=== PATIENT | female | born 1930 | race Caucasian/White ===

== ENCOUNTER 2018-03-21 19:13 | Observation (INO) | payer MEDICARE, OTHER ==
[2018-03-21 21:48] LABS: MODE ROOM AIR; MetHgb Venous 0.4 %; Sample Type Blood venous; Site VENOUS LINE; Venous COHb 0 %; Venous Fraction OxyHgb 63.3 %; Venous Oxygen Sat 63.6 mmHG (55.0-75.0); Venous Total Hemglobin 10.1 g/dl
[2018-03-21 21:56] LABS: WHITE BLOOD COUNT 5.1 10^3/ul (4.8-10.8)
[2018-03-21 21:57] LABS: HEMATOCRIT 28.1 % (37.0-47.0); HEMOGLOBIN 9.7 g/dl (12.0-16.0); MEAN CORPUSCULAR HEMOGLOBIN 34.9 pg (29.0-33.0); MEAN CORPUSCULAR HGB CONC 34.5 g/dl (32.0-37.0); MEAN CORPUSCULAR VOLUME 101.1 fl (82.0-101.0); MEAN PLATELET VOLUME 9.9 fl (7.4-10.4); PLATELET COUNT 256 10^3/UL (140-415); RED BLOOD COUNT 2.78 10^6/ul (4.20-5.40); RED CELL DISTRIBUTION WIDTH 14.8 % (11.5-14.5)
[2018-03-21 21:58] LABS: POSITIVE DIFF @See below
[2018-03-21 21:59] LABS: ADD MAN DIFF? YES
[2018-03-21] MEDS: SOD CHLORIDE 0.9% 520 ML IV (22:03)
[2018-03-21 22:14] LABS: ADD UMIC YES; UR ASCORBIC ACID 20 mg/dL (NEGATIVE); UR BACTERIA MANY /HPF (NONE SEEN); UR BILIRUBIN (Dip) NEGATIVE (NEGATIVE); UR BLOOD (Dip) NEGATIVE (NEGATIVE); UR CLARITY SLIGHTLY CLOUDY (CLEAR); UR COLOR YELLOW (YELLOW); UR GLUCOSE (Dip) NEGATIVE (NEGATIVE); UR KETONES (Dip) NEGATIVE (NEGATIVE); UR LEUKOCYTE ESTERASE (Dip) 2+ Leu/ul (NEGATIVE); UR MUCUS FEW /HPF (NONE SEEN); UR NITRITE (Dip) NEGATIVE (NEGATIVE); UR RBC 2 /HPF (0-5); UR SPECIFIC GRAVITY (Dip) 1.015 (1.003-1.030); UR TOTAL PROTEIN (Dip) NEGATIVE (NEGATIVE); UR UROBILINOGEN (Dip) 1+ mg/dL (NEGATIVE); UR WBC 7 /HPF (0-5)
[2018-03-21 22:15] LABS: ANION GAP 10 (5-13); BLOOD UREA NITROGEN 25 mg/dl (7-20); CALCIUM 9.7 mg/dl (8.4-10.2); CARBON DIOXIDE 22 mmol/L (21-31); CHLORIDE 100 mmol/L (97-110); CREATININE 0.91 mg/dl (0.44-1.00); GLUCOSE 101 mg/dl (70-220); MAGNESIUM 1.7 mg/dl (1.7-2.5); POTASSIUM 4.9 mmol/L (3.5-5.1); SODIUM 132 mmol/L (135-144)
[2018-03-21 22:27] LABS: ANISOCYTOSIS 2+ (0-0); BASOPHIL #M 0.1 10^3/ul (0.0-0.0); BASOPHILS % (M) 3 % (0-2); EOSINOPHILS % (M) 8 % (0-7); GIANT THROMBO% (M) 3 % (0-0); LYMPHOCYTES #M 0.8 10^3/ul (0.8-2.9); LYMPHOCYTES % (M) 17 % (15-51); MONOCYTE #M 0.2 10^3/ul (0.3-0.9); MONOCYTES % (M) 5 % (0-11); PLATELET ESTIMATE NORMAL; POLYCHROMASIA 3+ (0-0); SEGMENTED NEUTROPHILS (M) % 67 % (39-77); SMUDGE%M 36 % (0-0)
[2018-03-21] MEDS: HYDROCODONE/APAP (5/325) TAB PO (23:28)
[2018-03-21] MEDS: ONDANSETRON (ODT) 4 MG TAB ODT (23:28)
[2018-03-22] MEDS: CEFTRIAXONE 1 GM/50 ML (PMX) 50 ML IVPB (01:29)
[2018-03-22] MEDS ORDERED: MAGNESIUM HYDROXIDE 30ML CUP PO (03:30)
[2018-03-22] MEDS ORDERED: NACL 0.9% 3 ML SYG IV (03:30)
[2018-03-22] MEDS ORDERED: HYDROCODONE/APAP (5/325) TAB PO (03:30)
[2018-03-22] MEDS ORDERED: ONDANSETRON 4 MG INJ IV (03:30)
[2018-03-22] MEDS ORDERED: ALBUTEROL/IPRATROPIUM (NEB) 3 ML AMP HHN (03:30)
[2018-03-22] MEDS ORDERED: ACETAMINOPHEN 325 MG TAB PO (03:30)
[2018-03-22] MEDS: HYDROCODONE/APAP (5/325) TAB PO (04:52)
[2018-03-22] MEDS: PANTOPRAZOLE (EC) 40 MG TAB PO (05:28)
[2018-03-22 06:09] LABS: WHITE BLOOD COUNT 4.4 10^3/ul (4.8-10.8)
[2018-03-22 06:09] LABS: HEMATOCRIT 29.1 % (37.0-47.0); HEMOGLOBIN 9.8 g/dl (12.0-16.0); MEAN CORPUSCULAR HGB CONC 33.7 g/dl (32.0-37.0); MEAN PLATELET VOLUME 10.4 fl (7.4-10.4); PLATELET COUNT 253 10^3/UL (140-415); RED BLOOD COUNT 2.88 10^6/ul (4.20-5.40); RED CELL DISTRIBUTION WIDTH 14.8 % (11.5-14.5)
[2018-03-22 06:30] LABS: ADD MAN DIFF? YES; POSITIVE DIFF @See below
[2018-03-22 07:14] LABS: ALANINE AMINOTRANSFERASE 19 IU/L (13-69); ALBUMIN 3.5 g/dl (3.3-4.9); ALBUMIN/GLOBULIN RATIO 1.45; ALKALINE PHOSPHATASE 57 IU/L (42-121); ANION GAP 9 (5-13); ASPARTATE AMINO TRANSFERASE 20 IU/L (15-46); BILIRUBIN,INDIRECT 0.2 mg/dl (0-1.1); BILIRUBIN,TOTAL 0.2 mg/dl (0.2-1.3); BLOOD UREA NITROGEN 17 mg/dl (7-20); CALCIUM 9.6 mg/dl (8.4-10.2); CARBON DIOXIDE 26 mmol/L (21-31); CHLORIDE 100 mmol/L (97-110); GLUCOSE 99 mg/dl (70-220); POTASSIUM 4.7 mmol/L (3.5-5.1); SODIUM 135 mmol/L (135-144); TOTAL PROTEIN 5.9 g/dl (6.1-8.1)
[2018-03-22 07:15] LABS: ANISOCYTOSIS 1+ (0-0); BAND NEUTROPHILS #M 0.1 10^3/ul (0.0-0.6); BAND NEUTROPHILS % (M) 3 % (0-4); BASOPHILS % (M) 2 % (0-2); EOSINOPHILS % (M) 11 % (0-7); LYMPHOCYTES #M 1.1 10^3/ul (0.8-2.9); LYMPHOCYTES % (M) 27 % (15-51); MONOCYTE #M 0.1 10^3/ul (0.3-0.9); MONOCYTES % (M) 3 % (0-11); PLATELET ESTIMATE NORMAL; REACTIVE LYMPHOCYTES% (M) 1 % (0-0); SEG NEUT #M 2.3 10^3/ul (1.6-7.5); SEGMENTED NEUTROPHILS (M) % 53 % (39-77); SMUDGE%M 2 % (0-0)
[2018-03-22] MEDS ORDERED: NON-FORMULARY/PATIENT OWN MED (Omeprazole* 20 MG) PO (09:00)
[2018-03-22] MEDS: FLUOXETINE 20 MG CAP PO (09:48)
[2018-03-22] MEDS: ESCITALOPRAM 10 MG TAB PO (09:48)
[2018-03-22] MEDS: LOSARTAN 50 MG TAB PO (09:48)
[2018-03-22] MEDS: ATENOLOL 50 MG TAB PO (09:48)
[2018-03-22] MEDS: FERROUS SULFATE (EC) 325 MG TAB PO (09:49)
[2018-03-22] MEDS: FUROSEMIDE 20 MG TAB PO (09:49)
[2018-03-22 13:05] LABS: IRON 82 ug/dl (35-150)
[2018-03-22 13:14] LABS: % IRON SATURATION 25 % SAT (22-52); TOTAL IRON BINDING CAPACITY 324 ug/dl (241-421)
[2018-03-22] MEDS: FOSFOMYCIN 3 GM PACKET PO (13:23)
[2018-03-22 13:49] LABS: INR 1.29; PROTIME 16.3 Sec (11.9-14.9); PT RATIO 1.3
[2018-03-22 13:57] LABS: PARTIAL THROMBOPLASTIN TIME 26.6 Sec (23.0-35.0)
[2018-03-22] MEDS: SOD FERRIC GLUC COMPLX 125 MG in SOD CHLORIDE 0.9% 100 ML IVPB (13:58)
[2018-03-23] MEDS: PANTOPRAZOLE (EC) 40 MG TAB PO (05:41)
[2018-03-23 07:06] LABS: HEMATOCRIT 27.9 % (37.0-47.0); HEMOGLOBIN 9.5 g/dl (12.0-16.0); MEAN CORPUSCULAR HEMOGLOBIN 34.5 pg (29.0-33.0); MEAN CORPUSCULAR HGB CONC 34.1 g/dl (32.0-37.0); MEAN CORPUSCULAR VOLUME 101.5 fl (82.0-101.0); MEAN PLATELET VOLUME 10.2 fl (7.4-10.4); PLATELET COUNT 231 10^3/UL (140-415); RED BLOOD COUNT 2.75 10^6/ul (4.20-5.40); RED CELL DISTRIBUTION WIDTH 14.8 % (11.5-14.5)
[2018-03-23 07:06] LABS: WHITE BLOOD COUNT 3.3 10^3/ul (4.8-10.8)
[2018-03-23 07:11] LABS: ADD MAN DIFF? YES; POSITIVE DIFF @See below
[2018-03-23 07:39] LABS: ANION GAP 8 (5-13); BLOOD UREA NITROGEN 15 mg/dl (7-20); CALCIUM 9.3 mg/dl (8.4-10.2); CARBON DIOXIDE 24 mmol/L (21-31); CHLORIDE 100 mmol/L (97-110); CREATININE 0.51 mg/dl (0.44-1.00); GLUCOSE 89 mg/dl (70-220); PHOSPHORUS 3.1 mg/dl (2.5-4.9); SODIUM 132 mmol/L (135-144)
[2018-03-23 07:49] LABS: ANISOCYTOSIS 1+ (0-0); BASOPHILS % (M) 3 % (0-2); EOSINOPHILS % (M) 6 % (0-7); LYMPHOCYTES % (M) 32 % (15-51); MONOCYTE #M 0.1 10^3/ul (0.3-0.9); MONOCYTES % (M) 5 % (0-11); PLATELET ESTIMATE NORMAL; REACTIVE LYMPHOCYTES% (M) 2 % (0-0); SEGMENTED NEUTROPHILS (M) % 52 % (39-77); SMUDGE%M 7 % (0-0)
[2018-03-23 07:58] LABS: POTASSIUM 4.1 mmol/L (3.5-5.1)
[2018-03-23] MEDS: FERROUS SULFATE (EC) 325 MG TAB PO (08:37)
[2018-03-23] MEDS: LOSARTAN 50 MG TAB PO (08:38)
[2018-03-23] MEDS: FUROSEMIDE 20 MG TAB PO (08:38)
[2018-03-23] MEDS: FLUOXETINE 20 MG CAP PO (08:38)
[2018-03-23] MEDS: ESCITALOPRAM 10 MG TAB PO (08:39)
[2018-03-23] MEDS: CEFTRIAXONE 1 GM/50 ML (PMX) 50 ML IVPB (08:39)
[2018-03-23] MEDS: ATENOLOL 50 MG TAB PO (08:42)
[2018-03-23] MEDS: HYDROCODONE/APAP (5/325) TAB PO (21:05)
[2018-03-24] MEDS: PANTOPRAZOLE (EC) 40 MG TAB PO (06:44)
[2018-03-24] MEDS: FLUOXETINE 20 MG CAP PO (08:49)
[2018-03-24] MEDS: ATENOLOL 50 MG TAB PO (08:49)
[2018-03-24] MEDS: LOSARTAN 50 MG TAB PO (08:50)
[2018-03-24] MEDS: ESCITALOPRAM 10 MG TAB PO (08:50)
[2018-03-24] MEDS: FUROSEMIDE 20 MG TAB PO (08:50)
[2018-03-24] MEDS: CEFTRIAXONE 1 GM/50 ML (PMX) 50 ML IVPB (08:51)
[2018-03-24] MEDS: FERROUS SULFATE (EC) 325 MG TAB PO (08:51)
[2018-03-24] MEDS: HYDROCODONE/APAP (5/325) TAB PO (08:54)
[2018-03-24] MEDS ORDERED: POLYETHYLENE GLYCOL 17 GM PACKET PO (12:30)
== END 2018-03-24 15:50 | disposition home or self-care (01) ==
LOC: 2NE 03-22 01:20 → E/R 19:13
DX: S52.571A Other intraarticular fracture of lower end of right radius, initial encounter for closed fracture (principal); S52.611A Displaced fracture of right ulna styloid process, initial encounter for closed fracture; E78.5 Hyperlipidemia, unspecified; I10 Essential (primary) hypertension; I11.0 Hypertensive heart disease with heart failure; I50.9 Heart failure, unspecified; S00.511A Abrasion of lip, initial encounter; S00.31XA Abrasion of nose, initial encounter; G47.00 Insomnia, unspecified; E78.00 Pure hypercholesterolemia, unspecified; F32.9 Major depressive disorder, single episode, unspecified; Z79.82 Long term (current) use of aspirin; N39.0 Urinary tract infection, site not specified; D50.9 Iron deficiency anemia, unspecified; K29.70 Gastritis, unspecified, without bleeding; W19.XXXA Unspecified fall, initial encounter
CPT/HCPCS: 29126; 36415; 73110-RT; 73130-RT; 80048; 80053; 81001; 82728; 82803; 83540; 83735; 84100; 85025; 85610; 85730; 87086; 96360; 96361; 99285-25